=== PATIENT | male | born 1955 | race African-American/Black ===

== ENCOUNTER 2018-01-14 07:02 | Emergency (ER) | payer MEDICAID ==
[~2018-01-14] VITALS: Ht 177.8 cm; Wt 120.9 kg
[2018-01-14] MEDS ORDERED: PRAV40TA4 PO (07:08)
[2018-01-14] MEDS ORDERED: HYDR25TA PO (07:08)
[2018-01-14] MEDS ORDERED: LISI-661 PO (07:08)
[2018-01-14 08:38] VITALS: BP 142/81
== END 2018-01-14 08:48 | disposition home or self-care (01) ==
LOC: EMS 07:02
DX: I10 Essential (primary) hypertension (principal); E78.00 Pure hypercholesterolemia, unspecified; Z88.0 Allergy status to penicillin
CPT/HCPCS: 99283